=== PATIENT | female | born 2000 | race Caucasian/White ===

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

== ENCOUNTER → 2020-01-09 | Outpatient (CLI) | payer OTHER ==
[2020-01-12 08:07] LABS: CHLAMYDIA TRACHOMATIS, NAA Negative (Negative); NEISSERIA GONORRHOEAE, NAA Negative (Negative)
== END ==
LOC: LAB SHORT 17:30 → LAB EV 17:30
PROVIDERS: Physician Assistant Surgical
DX: N76.0 Acute vaginitis (principal)
CPT/HCPCS: 87491; 87591

== ENCOUNTER → 2020-02-29 | Outpatient (CLI) | payer OTHER ==
[2020-03-03 01:08] LABS: CHLAMYDIA TRACHOMATIS, NAA Negative (Negative); NEISSERIA GONORRHOEAE, NAA Negative (Negative)
== END ==
LOC: LAB EV 14:52 → LAB SHORT 14:52
PROVIDERS: Emergency Medicine
DX: R10.2 Pelvic and perineal pain (principal)
CPT/HCPCS: 87070; 87077; 87147; 87186; 87205; 87491; 87591

== ENCOUNTER → 2020-09-23 | Outpatient (CLI) | payer OTHER | END | disposition home or self-care (01) | LOC: LAB EV 08:59 → LAB SHORT 08:59 | DX: N39.0 Urinary tract infection, site not specified (principal) | CPT/HCPCS: 87077; 87086; 87147; 87186 ==

== ENCOUNTER → 2021-02-02 | Outpatient (CLI) | payer OTHER | LOC: LAB SHORT 12:38 → LAB EV 12:38 | DX: N39.0 Urinary tract infection, site not specified (principal) | CPT/HCPCS: 87077; 87086; 87186 ==

== ENCOUNTER → 2023-05-29 | Outpatient (CLI) | payer OTHER | LOC: LAB SHORT 16:47 → LAB 16:47 | DX: N39.0 Urinary tract infection, site not specified (principal) | CPT/HCPCS: 87077; 87086; 87186 ==

== ENCOUNTER → 2024-08-26 | Outpatient (CLI) | payer OTHER ==
[2024-08-28 09:59] LABS: APTIMA MEDIA TYPE Urine; C. TRACHOMATIS BY TMA Negative (Negative); N. GONORRHOEAE BY TMA Negative (Negative); SPECIMEN SOURCE Urine
== END | disposition home or self-care (01) ==
LOC: LAB 10:19 → LAB SHORT 10:19
PROVIDERS: Advanced Practice Midwife
DX: O98.311 Other infections with a predominantly sexual mode of transmission complicating pregnancy, first trimester (principal); A56.8 Sexually transmitted chlamydial infection of other sites
CPT/HCPCS: 87491; 87591

== ENCOUNTER 2024-11-13 13:21 | Inpatient (IN) | payer OTHER ==
[~2024-11-13] VITALS: Ht 152.4 cm; Wt 75.5 kg
[2024-11-13 13:35] VITALS: BP 112/73
[2024-11-13 13:50] VITALS: BP 109/72
[2024-11-13] MEDS ORDERED: FentaNYL Citrate 50 MCG/ML 2 ML Injection IV PRN ×2 (14:35→15:00)
[2024-11-13] MEDS ORDERED: Misoprostol 200 MCG Tab BC PRN (14:40)
[2024-11-13] MEDS ORDERED: Oxytocin 10 Unit / ML Vial IM PRN (14:40)
[2024-11-13] MEDS ORDERED: Misoprostol 200 MCG Tab PR PRN (14:40)
[2024-11-13] MEDS ORDERED: Carboprost Tromethamine 250 MCG/ML 1ML Amp IM PRN (14:40)
[2024-11-13] MEDS ORDERED: Ondansetron HCl 2 MG / ML 2ML Vial IV PRN (14:40)
[2024-11-13] MEDS ORDERED: OXYTOCIN/RINGER'S LACTATE 500 ML IV PRN (14:40)
[2024-11-13] MEDS ORDERED: FentaNYL 2mcg/ml-Bup 0.1% Epd 250 ML EPI PRN (14:40)
[2024-11-13] MEDS ORDERED: Acetaminophen 500 MG Tab PO PRN (14:40)
[2024-11-13] MEDS ORDERED: Lactated Ringer's 1,000 ML IV PRN (14:40)
[2024-11-13] MEDS ORDERED: ePHEDrine Sulfate 50 MG/ML 1ML Injection XX PRN (14:40)
[2024-11-13] MEDS ORDERED: Calcium Carbonate 500 MG Tab Chew PO PRN (14:40)
[2024-11-13] MEDS ORDERED: Lactated Ringer's 1,000 ML IV SCH ×2 (14:40)
[2024-11-13] MEDS ORDERED: Methylergonovine Maleate 0.2MG / ML 1ML Amp IM PRN (14:40)
[2024-11-13] MEDS ORDERED: Penicillin G Potassium 5,000,000 UNITS in NS 250 ML IV ONE (14:45)
[2024-11-13] MEDS ORDERED: PRENATAL 19 TA1 EAC3 (14:51)
[2024-11-13] MEDS ORDERED: Calcium Carbon500 MG (14:52)
[2024-11-13] MEDS ORDERED: Tranexamic Acid 100 ML IV PRN (15:05)
[2024-11-13 15:16] LABS: BASOPHILS ABSOLUTE AUTO 0.04 K/mm3 (0.00-0.23); BASOPHILS PERCENT AUTO 0 % (0-2); EOSINOPHILS ABSOLUTE AUTO 0.03 K/mm3 (0.00-0.68); EOSINOPHILS PERCENT AUTO 0 % (0-6); Hematocrit 36.6 % (33.0-51.0); Hemoglobin 11.9 g/dL (11.5-16.0); IMMATURE GRAN ABSOLUTE AUTO 0.05 K/mm3 (0.00-0.10); IMMATURE GRAN PERCENT AUTO 1 % (0-1); LYMPHOCYTES PERCENT AUTO 23 % (21-46); MONOCYTES ABSOLUTE AUTO 0.78 K/mm3 (0.16-1.47); MONOCYTES PERCENT AUTO 8 % (4-13); Mean Corpuscular HGB 25.4 pg (26.0-34.0); Mean Corpuscular HGB Conc 32.5 g/dL (31.5-36.5); Mean Corpuscular Volume 78 fL (80-100); Mean Platelet Volume 10.6 fL (9.1-12.4); NEUTROPHILS ABSOLUTE AUTO 7.03 K/mm3 (1.96-9.15); NEUTROPHILS PERCENT AUTO 69 % (41-73); Platelet Count 264 K/mm3 (150-400); RDW Standard Deviation 39.3 fL (35.1-46.3); Red Blood Cell Count 4.68 M/mm3 (3.80-5.20); White Blood Cell Count 10.23 K/mm3 (4.00-11.30)
[2024-11-13] MEDS ORDERED: Terbutaline Sulfate 1MG / ML 1 ML Amp ONE (16:01)
[2024-11-13] MEDS ORDERED: Terbutaline Sulfate 1MG / ML 1 ML Amp SC ONE (16:05)
[2024-11-13 16:08] VITALS: BP 110/67
[2024-11-13 16:19] VITALS: BP 110/67
[2024-11-13] MEDS ORDERED: Penicillin G Potassium 2,500,000 UNITS in Dextrose 5% 100 ML IV SCH (20:00)
== END 2024-11-13 17:00 | disposition short-term general hospital (02) | DRG 833 ==
LOC: OBS 13:21 → BC 13:24 → OBS 14:18 → BC 17:00
PROVIDERS: ADMIT Obstetrics & Gynecology
DX: O60.03 Preterm labor without delivery, third trimester (principal); Z3A.35 35 weeks gestation of pregnancy; Z79.899 Other long term (current) drug therapy; O26.893 Other specified pregnancy related conditions, third trimester; E88.819 Insulin resistance, unspecified; D56.3 Thalassemia minor; E75.5 Other lipid storage disorders
CPT/HCPCS: 59025; 81003; 85025; 86850; 86900; 86901; 87081; 87150; 99214; J2540; J3105; J7050

== ENCOUNTER 2024-11-25 06:16 | Inpatient (IN) | payer OTHER ==
[2024-11-25] VITALS (18 sets, daily range): BP systolic 102–149; BP diastolic 56–77
[~2024-11-25] VITALS: Ht 162.6 cm; Wt 75.0 kg
[~2024-11-25 06:16] MED LIST: Calcium Carbon500 MG; PRENATAL 19 TA1 EAC3
[2024-11-25] MEDS ORDERED: Tranexamic Acid 100 ML IV SCH (06:35)
[2024-11-25] MEDS ORDERED: Methylergonovine Maleate 0.2MG / ML 1ML Amp IM PRN (06:35)
[2024-11-25] MEDS ORDERED: Lactated Ringer's 1,000 ML IV PRN (06:35)
[2024-11-25] MEDS ORDERED: Calcium Carbonate 500 MG Tab Chew PO PRN (06:35)
[2024-11-25] MEDS ORDERED: Ondansetron HCl 2 MG / ML 2ML Vial IV PRN (06:35)
[2024-11-25] MEDS ORDERED: Misoprostol 200 MCG Tab PR PRN ×2 (06:35→09:25)
[2024-11-25] MEDS ORDERED: Misoprostol 200 MCG Tab BC PRN (06:35)
[2024-11-25] MEDS ORDERED: Oxytocin 10 Unit / ML Vial IM PRN (06:35)
[2024-11-25] MEDS ORDERED: Acetaminophen 500 MG Tab PO PRN (06:35)
[2024-11-25] MEDS ORDERED: Carboprost Tromethamine 250 MCG/ML 1ML Amp IM PRN ×2 (06:35→09:30)
[2024-11-25] MEDS ORDERED: OXYTOCIN/RINGER'S LACTATE 500 ML IV PRN (06:35)
[2024-11-25] MEDS ORDERED: FentaNYL 2mcg/ml-Bup 0.1% Epd 250 ML EPI PRN (07:15)
[2024-11-25] MEDS ORDERED: Lactated Ringer's 1,000 ML IV SCH ×3 (07:15→09:25)
[2024-11-25] MEDS ORDERED: ePHEDrine Sulfate 50 MG/ML 1ML Injection XX PRN (07:15)
[2024-11-25] MEDS ORDERED: ePHEDrine Sulfate 50 MG/ML 1ML Injection ONE (07:18)
[2024-11-25] MEDS ORDERED: FentaNYL Citrate 50 MCG/ML 2 ML Injection IV PRN (07:20)
[2024-11-25 07:26] LABS: BASOPHILS ABSOLUTE AUTO 0.04 K/mm3 (0.00-0.23); BASOPHILS PERCENT AUTO 0 % (0-2); EOSINOPHILS ABSOLUTE AUTO 0.04 K/mm3 (0.00-0.68); EOSINOPHILS PERCENT AUTO 0 % (0-6); Hemoglobin 12.5 g/dL (11.5-16.0); IMMATURE GRAN ABSOLUTE AUTO 0.04 K/mm3 (0.00-0.10); IMMATURE GRAN PERCENT AUTO 0 % (0-1); LYMPHOCYTES ABSOLUTE AUTO 2.58 K/mm3 (0.84-5.20); LYMPHOCYTES PERCENT AUTO 26 % (21-46); MONOCYTES ABSOLUTE AUTO 0.85 K/mm3 (0.16-1.47); MONOCYTES PERCENT AUTO 8 % (4-13); Mean Corpuscular HGB 25.2 pg (26.0-34.0); Mean Corpuscular HGB Conc 32.9 g/dL (31.5-36.5); Mean Corpuscular Volume 77 fL (80-100); Mean Platelet Volume 10.6 fL (9.1-12.4); NEUTROPHILS ABSOLUTE AUTO 6.51 K/mm3 (1.96-9.15); NEUTROPHILS PERCENT AUTO 65 % (41-73); Platelet Count 288 K/mm3 (150-400); RDW Coefficient Variation 14.4 % (11.7-14.2); RDW Standard Deviation 39.3 fL (35.1-46.3); Red Blood Cell Count 4.96 M/mm3 (3.80-5.20); White Blood Cell Count 10.06 K/mm3 (4.00-11.30)
[2024-11-25] MEDS ORDERED: FentaNYL Citrate 50 MCG/ML 2 ML Injection ONE (07:35)
[2024-11-25] MEDS ORDERED: Lidocaine 2%-Epineph 1:200000 20 ML SDV ONE (07:49)
[2024-11-25] MEDS ORDERED: FLU VACC TS2024-25(6MOS UP)/PF 45 MCG/0.5 ML SYRINGE IM SCH (09:25)
[2024-11-25] MEDS ORDERED: Lanolin Cream TOP PRN (09:25)
[2024-11-25] MEDS ORDERED: Measles/Mumps/Rubella Vaccine 0.5 ML Vial SC ONE (09:25)
[2024-11-25] MEDS ORDERED: OXYTOCIN/RINGER'S LACTATE 500 ML IV SCH (09:25)
[2024-11-25] MEDS ORDERED: Docusate Sodium 100 MG Cap PO PRN (09:25)
[2024-11-25] MEDS ORDERED: Benzocaine Topical Anesthetic Spray 60GM TOP PRN (09:30)
[2024-11-25] MEDS ORDERED: Witch Hazel/Glycerin PADS TOP PRN (09:30)
[2024-11-25] MEDS ORDERED: Ketorolac Tromethamine 30mg Vial IV PRN (09:30)
[2024-11-25] MEDS ORDERED: Acetaminophen 325 MG TABLET PO PRN (09:30)
[2024-11-25] MEDS ORDERED: Ibuprofen 400 MG Tab PO PRN (09:30)
[2024-11-26 00:42] VITALS: BP 124/60
[2024-11-26 05:06] VITALS: BP 116/76
[2024-11-26] MEDS ORDERED: Prenatal Vit/FE Fumarate/FA 1 Tab PO SCH (09:00)
[2024-11-26 10:05] VITALS: BP 119/70
[2024-11-26 13:35] VITALS: BP 111/70
[2024-11-26 15:59] VITALS: BP 126/58
[2024-11-26 19:38] VITALS: BP 118/79
--- NOTE | 2024-11-26 21:53 | NUR ---
2119- RN WALKED MOB OUT TO VEHICLE WITH IN MOB ARMS. RN WATCHED MOB & FOB PLACED IN CARSEAT. PARENTS HAD NO QUESTIONS OR CONCERNS AT THIS TIME. RN EDUCATED THEM TO CALL PROVIDER/FBP FOR ANY CONCERNS THAT ARISE.
== END 2024-11-26 21:00 | disposition home or self-care (01) | DRG 806 ==
LOC: OBS 06:16 → BC 06:26
PROVIDERS: ADMIT Advanced Practice Midwife
PROC: 10E0XZZ Delivery of Products of Conception, External Approach (ICD-10-PCS; principal; 2024-11-25)
PROC: 10D17Z9 Manual Extraction of Products of Conception, Retained, Via Natural or Artificial Opening (ICD-10-PCS; 2024-11-25)
PROC: 00HU33Z Insertion of Infusion Device into Spinal Canal, Percutaneous Approach (ICD-10-PCS; 2024-11-25)
PROC: 3E0R3BZ Introduction of Anesthetic Agent into Spinal Canal, Percutaneous Approach (ICD-10-PCS; 2024-11-25)
DX: O42.02 Full-term premature rupture of membranes, onset of labor within 24 hours of rupture (principal); O98.52 Other viral diseases complicating childbirth; Z37.0 Single live birth; Z3A.37 37 weeks gestation of pregnancy; B00.9 Herpesviral infection, unspecified; O26.893 Other specified pregnancy related conditions, third trimester; E88.819 Insulin resistance, unspecified; Z86.19 Personal history of other infectious and parasitic diseases; Z28.21 Immunization not carried out because of patient refusal; Z39.2 Encounter for routine postpartum follow-up
CPT/HCPCS: 36415; 59025; 81003; 85025; 86850; 86900; 86901; 99211; 99214; A9270; J1885; J2590; J3010; J7120

== ENCOUNTER → 2025-03-25 | Outpatient (CLI) | payer OTHER ==
[2025-03-27 21:09] LABS: C. TRACHOMATIS BY TMA,THINPREP Negative (Negative); N. GONORRHOEAE BY TMA,THINPREP Negative (Negative); SPECIMEN SOURCE Cervical/Vag
== END | disposition home or self-care (01) ==
LOC: LAB 11:49 → LAB SHORT 11:49
PROVIDERS: Advanced Practice Midwife
DX: Z01.419 Encounter for gynecological examination (general) (routine) without abnormal findings (principal); Z11.3 Encounter for screening for infections with a predominantly sexual mode of transmission
CPT/HCPCS: 87491; 87591; G0123